=== PATIENT | male | born 1950 | race Caucasian/White ===

== ENCOUNTER 2023-04-09 11:13 | Emergency (ER) | payer BC, OTHER ==
[~2023-04-09] VITALS: Ht 180.3 cm; Wt 81.6 kg
[2023-04-09 11:15] VITALS: BP_SYST 151
--- NOTE | 2023-04-09 11:15 | NUR ---
BROUGHT BACK TO HALLWAY BED AND TRIAGED. DR GOMEZ AT BEDSIDE FOR EVALUATION.
--- NOTE | 2023-04-09 11:20 | NUR ---
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 BLEEDING IS CONTROLLED.
--- NOTE | 2023-04-09 11:39 | NUR ---
PTS LACERATION BEING CLEANED BY MINA CUNHA, PT TOLERATED IT WELL.
[2023-04-09] MEDS ORDERED: LIDOCAINE 1% 10 MG/ML, 20 ML MDV INJ ONE (11:45)
[2023-04-09] MEDS ORDERED: BACITRACIN 1 GM OINT TP ONE (12:00)
[2023-04-09] MEDS ORDERED: ACET-2634 PO (12:11)
[2023-04-09 12:27] VITALS: BP_SYST 138
--- NOTE | 2023-04-09 12:29 | NUR ---
Patient given written and verbal discharge instructions and verbalizes understanding. ER MD discussed with patient the results and treatment provided. Patient in stable condition. ID arm band removed. IV catheter removed intact and dressing applied, no active bleeding. Rx of given. Patient educated on pain management and to follow up with PMD. Pain Scale . Opportunity for questions provided and answered. Medication side effect fact sheet provided.
== END 2023-04-09 12:29 | disposition home or self-care (01) ==
LOC: SED 11:13
DX: S81.011A Laceration without foreign body, right knee, initial encounter (principal); Z79.899 Other long term (current) drug therapy; W01.0XXA Fall on same level from slipping, tripping and stumbling without subsequent striking against object, initial encounter; Y93.89 Activity, other specified; Y92.89 Other specified places as the place of occurrence of the external cause; Y99.8 Other external cause status
CPT/HCPCS: 99283